=== PATIENT | female | born 1980 ===

== ENCOUNTER 2022-04-10 19:31 | Emergency (ER) | payer SELFPAY ==
[2022-04-10] MEDS ORDERED: ASPIRIN 325 MG TAB PO ONE (19:57)
[2022-04-10 20:56] LABS: Eosinophils # (Auto) 0.1 K/mm3 (0.0-0.4); Eosinophils % (Auto) 1.4 % (0.0-4.3); Hematocrit 38.6 % (30.3-42.9); Hemoglobin 13.9 gm/dl (10.1-14.3); Lymphocytes # (Auto) 2.6 K/mm3 (1.2-5.4); Mean Corpuscular HGB Conc 36 % (30-34); Mean Corpuscular Volume 93 fl (79-97); Monocytes # (Auto) 0.3 K/mm3 (0.0-0.8); Monocytes % (Auto) 5.6 % (0.0-7.3); Platelet Count 163 K/mm3 (140-440); Red Blood Count 4.14 M/mm3 (3.65-5.03); Red Cell Distribution Width 13.6 % (13.2-15.2)
[2022-04-10 21:08] LABS: Alanine Aminotransferase 18 units/L (7-56); Albumin 4.9 g/dL (3.9-5); Blood Urea Nitrogen 9 mg/dL (7-17); Calcium 9.3 mg/dL (8.4-10.2); Hemolysis Index 17
[2022-04-10 21:21] LABS: BUN/Creatinine Ratio 13
--- NOTE | 2022-04-10 22:40 | XRay Report ---
CHEST 2 VIEWS INDICATION / CLINICAL INFORMATION: chest pain. COMPARISON: None available. FINDINGS: SUPPORT DEVICES: None. HEART / MEDIASTINUM: No significant abnormality. LUNGS / PLEURA: No significant pulmonary or pleural abnormality. No pneumothorax. ADDITIONAL FINDINGS: No significant additional findings. IMPRESSION: 1. No acute findings. Signer Name: Stan Henry DO Signed: 04/10/2022 10:36 PM Workstation Name: [id number]
[2022-04-11 02:35] VITALS: BP 137/92
--- NOTE | 2022-04-12 12:05 | Electrocardiograph Report ---
[facility] Test Date: 2022-04-10 Test Time: 19:53:09 Pat Name: RANJITH ALEXANDER Department: Room: Gender: F Control Electrician: ABDIEL : 1980 Requested By: RAQUEL WEBB Order Number: [id number] Reading MD: Sancho Duarte Measurements Intervals Edna Rate: 95 P: 61 UT: 167 QRS: 30 QRSD: 71 T: 34 QT: 381 QTc: 479 Interpretive Statements Sinus rhythm Probable left atrial enlargement Low voltage, precordial leads No previous ECG available for comparison Electronically Signed On 04-12-2022 12:04:30 EDT by Sancho Duarte
== END 2022-04-11 02:36 | disposition left against medical advice (07) ==
LOC: ED 19:31
DX: I10 Essential (primary) hypertension (principal); R07.9 Chest pain, unspecified; Z53.21 Procedure and treatment not carried out due to patient leaving prior to being seen by health care provider
CPT/HCPCS: 36415; 71046; 80053; 84484; 84703; 85025; 93005